=== PATIENT | male | born 1985 | race Caucasian/White ===

== ENCOUNTER 2016-11-06 17:41 | Emergency (ER) | payer OTHER ==
[~2016-11-06] VITALS: Ht 195.6 cm; Wt 122.7 kg
[2016-11-06 17:48] VITALS: Ht 195.6 cm; Wt 122.7 kg
[2016-11-06] MEDS ORDERED: SOD CHLORIDE 0.9% 1,000 ML IV STA ×2 (17:49→20:51)
--- NOTE | 2016-11-06 18:42 | RADRPT ---
PROCEDURE: Chest x-ray CLINICAL INDICATION: Altered mental status TECHNIQUE: Chest single view COMPARISON: None FINDINGS: The heart is normal in size. The pulmonary vessels are normal in caliber. The lungs are clear. Th e costophrenic angles are sharp. The visualized bony thorax is unremarkable. IMPRESSION: No acute cardiopulmonary disease. RPTAT: HH .Henri Villalobos MD, Date Time Electronically viewed and signed by .Henri Villalobos MD, on 11/06/2016 18:41 .W/
[2016-11-06 19:03] LABS: BASOPHILS % 0.3 % (0.0-2.0); EOSINOPHILS % 0.6 % (0.0-7.0); HEMATOCRIT 41.1 % (42.0-52.0); HEMOGLOBIN 13.8 g/dl (14.0-18.0); LYMPHOCYTES # 1.5 10^3/ul (0.8-2.9); LYMPHOCYTES % 21.8 % (15.0-51.0); MEAN CORPUSCULAR HGB CONC 33.6 g/dl (32.0-37.0); MEAN CORPUSCULAR VOLUME 92.1 fl (82.0-101.0); MEAN PLATELET VOLUME 9.7 fl (7.4-10.4); MONOCYTE # 0.4 10^3/ul (0.3-0.9); MONOCYTES % 6.6 % (0.0-11.0); NEUTROPHIL # 4.7 10^3/ul (1.6-7.5); NEUTROPHILS % 70.7 % (39.0-77.0); PLATELET COUNT 185 10^3/UL (140-440); RED BLOOD COUNT 4.47 10^6/ul (4.70-6.10); RED CELL DISTRIBUTION WIDTH 13.2 % (11.5-14.5); UNCORRECTED WBC 6.7 10^3/ul (4.8-10.8); WHITE BLOOD COUNT 6.7 10^3/ul (4.8-10.8)
[2016-11-06 19:06] LABS: CONDITION 1
--- NOTE | 2016-11-06 19:09 | RADRPT ---
PROCEDURE: CT Brain without contrast. CLINICAL INDICATION: Altered mental status TECHNIQUE: Routine CT scan of the brain was performed on a high resolution multi detector scanner without intravenous contrast. One or more of the following dose reduction techniques were used: Auto mated exposure control; Adjustment of the mA and/or kV according to patient size; Use of iterative r econstruction technique. CTDI = 44 mGy. DLP = 720 mGy-cm. COMPARISON: No prior relevant examinations are available for comparison. FINDINGS: Hemorrhage: No evidence of intracranial hemorrhage. Acute ischemic changes: No evidence of acute ischemic changes. Mass effect/Midline shift: None. Parenchymal volume: Within normal limits for age. Ventricular system: Mild prominence of the ventricular caliber throughout appears upper limits of no rmal. Cavum of the septum pellucidum is noted. Chronic changes: Parenchymal attenuation is within normal limits. Extracranial soft tissues: Unremarkable. Calvarium: No fractures. Paranasal sinuses: Visualized paranasal sinuses are clear. Mastoid air cells: Visualized mastoid air cells are clear. IMPRESSION: No acute intracranial abnormalities. Normal appearance the brain parenchyma. MRI of the brain may be useful for further evaluation. RPTAT: [facility]ADD .Young Berumen MD, MD Date Time Electronically viewed and signed by .Young Berumen MD, on 11/06/2016 19:09 .B/
[2016-11-06 19:12] LABS: ALBUMIN 4.4 g/dl (3.3-4.9)
[2016-11-06 19:13] LABS: CHLORIDE 101 mmol/L (97-110); INR 1.01; POTASSIUM 4.2 mmol/L (3.5-5.1); PROTIME 13.3 Sec (12.2-14.2); SODIUM 142 mmol/L (135-144)
[2016-11-06 19:14] LABS: PARTIAL THROMBOPLASTIN TIME 28.1 Sec (25.0-35.0)
[2016-11-06 19:15] LABS: ALANINE AMINOTRANSFERASE 35 IU/L (13-69); ALBUMIN/GLOBULIN RATIO 1.41; ALKALINE PHOSPHATASE 70 IU/L (42-121); ANION GAP 15 (8-16); ASPARTATE AMINO TRANSFERASE 25 IU/L (15-46); BILIRUBIN,INDIRECT 0.2 mg/dl (0-1.1); BILIRUBIN,TOTAL 0.2 mg/dl (0.2-1.3); BLOOD UREA NITROGEN 26 mg/dl (7-20); CARBON DIOXIDE 30 mmol/L (21-31); CREATININE 1.09 mg/dl (0.61-1.24); GLUCOSE 92 mg/dl (70-220); TOTAL PROTEIN 7.5 g/dl (6.1-8.1)
[2016-11-06 19:16] LABS: CALCIUM 9.3 mg/dl (8.4-10.2); CREATINE KINASE 121 IU/L (23-200)
[2016-11-06 19:19] LABS: ACETAMINOPHEN < 10.0 ug/ml (10.0-30.0); ETHANOL < 10.0 mg/dl; SALICYLATE < 1.0 mg/dl (5.0-30.0)
[2016-11-06 19:32] LABS: TROPONIN-I < 0.010 ng/ml (0.00-0.12)
[2016-11-06 20:45] LABS: ADD UMIC NO; URINE BILIRUBIN (Dip) NEGATIVE (NEGATIVE); URINE BLOOD (Dip) NEGATIVE (NEGATIVE); URINE COLOR LT. YELLOW (YELLOW); URINE GLUCOSE (Dip) NEGATIVE (NEGATIVE); URINE KETONES (Dip) NEGATIVE (NEGATIVE); URINE LEUKOCYTE ESTERASE (Dip) NEGATIVE (NEGATIVE); URINE NITRITE (Dip) NEGATIVE (NEGATIVE); URINE TOTAL PROTEIN (Dip) NEGATIVE (NEGATIVE); URINE UROBILINOGEN (Dip) 0.2 E.U./dL (0.1-1.0)
[2016-11-06] MEDS ORDERED: ONDANSETRON 4 MG INJ IV ONE (20:53)
[2016-11-06 21:07] LABS: BARBITURATES Negative (NEGATIVE); BENZODIAZEPINES Negative (NEGATIVE); CANNABINOIDS Negative (NEGATIVE); COCAINE Negative (NEGATIVE); OPIATES Negative (NEGATIVE)
--- NOTE | 2016-11-06 21:52 | ERD ---
ER Documentation Chief Complaint Date/Time DATE: 11/06/16 TIME: 21:42 Chief Complaint ALOC x today HPI This is a 31-year-old male who presents to the emergency department brought in by EMS after the patient had a witnessed brief transient loss of consciousness , with loss of postural tone and complete spontaneous recovery just prior to arrival. The patient had the syncope episode while in the bathroom. He stated he been sitting for significant amount of time and stood to walk to the bathroom when he can completely had a brief transient loss of consciousness witnessed by his . He indicates he is very prone to hypotension as whenever he will have several beers he will feel very lightheaded and dizzy. He however indicates he did not have any alcoholic beverages in the past several days. He denies a headache or changes in vision. He denies any nausea vomiting or abdominal pain. He denies any dizziness prior to the syncope or after the syncope episode. He denies any neck pain. He denies any recent travel or prolonged immobilization has no shortness of breath. His indicated there was no tonic-clonic movements, no urinary incontinence and the patient did not bite his tongue. The patient has no family history of sudden cardiac . ROS All systems reviewed and are negative except as per history of present illness. Medications Home Meds No Active Prescriptions or Reported Meds Allergies Allergies: Coded Allergies: No Known Allergy (Unverified , 11/06/16) PMhx/Soc Medical and Surgical Hx: pt denies Medical Hx, pt denies Surgical Hx History of Surgery: No Anesthesia Reaction: No Hx Neurological Disorder: No Hx Respiratory Disorders: No Hx Cardiac Disorders: No Hx Psychiatric Problems: No Hx Miscellaneous Medical Probl: No Hx Alcohol Use: Yes (occasional) Hx Substance Use: No Hx Tobacco Use: Yes (cigar occasional) Smoking Status: Current some day smoker Physical Exam Vitals Vital Signs Date Time Temp Pulse Resp B/P Pulse Ox O2 Delivery O2 Flow Rate FiO2 11/06/16 19:30 58 18 117/80 Room Air 11/06/16 19:22 61 18 134/71 Room Air 11/06/16 17:48 97.0 65 18 134/97 96 Physical Exam Constitutional:Well-developed. Well-nourished. Lying supine in stretcher HEENT:Normocephalic. Atraumatic.Pupils were equal round reactive to light. Dry mucous membranes.No tonsillar exudates. No nasoseptal hematoma. No hemotympanum. Funduscopy exam showed sharp optic disc bilaterally pupils are equal round reactive to light Neck: No nuchal rigidity. No lymphadenopathy. No posterior cervical spine tenderness or step-offs. Respiratory: Not using accessory muscles of respiration.Lungs were clear to auscultation bilaterally. No rhonchi. No rales. No wheezing. Cardiovascular: Regular rate regular rhythm.No murmurs. No rubs were appreciated.S1, S2 normal. Distal pulses are palpable 2+ bilaterally. GI: Abdomen was soft. Nontender. Non Distended. No pulsatile abdominal masses or bruits. No rebound. No guarding. Bowel sounds were present and normal. Muscle skeletal: Full range of motion of both the upper and lower extremities bilaterally.Normal muscle tone.No assymetrical calf tenderness or swelling. Skin: Pallor with no petechia, no purpura. No lesions on the palms or the soles of the feet. No maculopapular rash. NEURO: Patient was alert, awake, orientated x3.No facial droop. Gait observed and normal with no ataxia.Speech had regular rate and rhythm. No focal neurological deficits. Result Diagram: 11/06/16184911/06/161849 Results 24 hrs Laboratory Tests Test 11/06/16 18:15 11/06/16 18:50 11/06/16 20:19 Bedside Glucose 117mg/dL Acetaminophen Level < 10.0ug/ml Activated Partial Thromboplast Time 28.1Sec Alanine Aminotransferase (ALT/SGPT) 35IU/L Albumin 4.4g/dl Albumin/Globulin Ratio 1.41 Alkaline Phosphatase 70IU/L Anion Gap 15 Aspartate Amino Transf (AST/SGOT) 25IU/L Basophils # 0.010^3/ul Basophils % 0.3% Blood Urea Nitrogen 26mg/dl Calcium Level 9.3mg/dl Carbon Dioxide Level 30mmol/L Chloride Level 101mmol/L Creatine Kinase 121IU/L Creatine Kinase Index 0.4 Creatinine 1.09mg/dl Creatinine Kinase MB (Mass) 0.50ng/ml Direct Bilirubin 0.00mg/dl Eosinophils # 0.010^3/ul Eosinophils % 0.6% Ethyl Alcohol Level < 10.0mg/dl Globulin 3.10g/dl Glucose Level 92mg/dl Hematocrit 41.1% Hemoglobin 13.8g/dl INR International Normalized Ratio 1.01 Indirect Bilirubin 0.2mg/dl Lymphocytes # 1.510^3/ul Lymphocytes % 21.8% Mean Corpuscular Hemoglobin 31.0pg Mean Corpuscular Hemoglobin Concent 33.6g/dl Mean Corpuscular Volume 92.1fl Mean Platelet Volume 9.7fl Monocytes # 0.410^3/ul Monocytes % 6.6% Neutrophils # 4.710^3/ul Neutrophils % 70.7% Nucleated Red Blood Cells # 0.010^3/ul Nucleated Red Blood Cells % 0.0/100WBC Platelet Count 92198^3/UL Potassium Level 4.2mmol/L Prothrombin Time 13.3Sec Prothrombin Time Ratio 1.0 Red Blood Count 4.4710^6/ul Red Cell Distribution Width 13.2% Salicylates Level < 1.0mg/dl Sodium Level 142mmol/L Total Bilirubin 0.2mg/dl Total Protein 7.5g/dl Troponin I < 0.010ng/ml White Blood Count 6.710^3/ul Urine Amphetamines Screen Negative Urine Barbiturates Negative Urine Benzodiazepines Screen Negative Urine Bilirubin NEGATIVE Urine Cannabinoids Negative Urine Clarity CLEAR Urine Cocaine Screen Negative Urine Color LT. YELLOW Urine Glucose NEGATIVE% Urine Hemoglobin NEGATIVE Urine Ketones NEGATIVE Urine Leukocyte Esterase NEGATIVE Urine Nitrite NEGATIVE Urine Opiates Screen Negative Urine Specific [place] 1.015 Urine Total Protein NEGATIVE Urine Urobilinogen 0.2 E.U./dL Urine pH 7.0 Current Medications Medications (Trade) Dose Ordered Sig/Travis Route PRN Reason Start Time Stop Time Status Last Admin Dose Admin Sodium Chloride 1,000 ml @ 1,000 mls/hr Q1H STAT IV 11/06/16 17:49 11/06/16 18:48 DC 11/06/16 19:12 Sodium Chloride (NS) 1,000 ml @ 1,000 mls/hr Q1H STAT IV 11/06/16 20:51 11/06/16 21:50 DC 11/06/16 21:13 Ondansetron HCl (Zofran Inj) 4 mg ONCE ONCE IV 11/06/16 20:53 11/06/16 20:54 DC 11/06/16 21:13 Procedures/MDM The patient presented to the emergency department with a transient loss of consciousness with loss of postural tone, suggestive of a syncope episode. The differential diagnosis of syncope is vast but my workup considered common benign disorders to life-threatening processes. Therefore my differential diagnosis included but was not limited to reflex-mediated syncope such as vasovagal or carotid sinus syncope from coughing, sneezing, micturition, or GI stimulation (eg, defecation). Other etiologies in my workup included orthostatic hypotension which could cause syncope from an abrupt drop in venous return to heart from volume depletion. An EKG and cardiac enzymes were obtained to rule out cardiac arrhythmias or ischemia. Cardiopulmonary disease such as valvular disease, hypertrophic cardiomyopathy, pericardial tamponade, or pulmonary embolism were considered as a factor causing the patients syncope episode. The patient had no difference in blood pressure in both arms that could suggest aortic dissection or subclavian steal syndrome. Rectal exam was negative for fecal occult blood that could suggest GI bleeding. Ancillary laboratory work was obtained to evaluate for metabolic or electrolyte abnormalities. The patient had no witnessed brief tonic movements that could suggest postictal confusion. The patient was placed on a administration manager, continuous pulse oximetry and IV access established by nursing staff. Patient received a liter bolus of 0.9 normal saline. He also received intravenous Zofran. 12 Lead EKG tracing ordered and reviewed by myself showed: Sinus bradycardia of 58 bpm and no arrhythmia. [place] interval normal. QRS duration normal. No ST segment elevation No ST segment depression. No changes consistent with acute ischemia. CT scan of the head showed no acute intracerebral hemorrhage mass-effect or midline shift. Orthostatic vital signs were performed and positive. I did feel the patient's symptoms are likely result of vasovagal syncope. He stated his symptoms have significantly improved and he felt comfortable being discharged home. Observation Note: Time: 4 hours Family Hx: No Hypertension Evaluation: Multiple exams showed improving symptoms and no evidence of his symptoms The patient was discharged home in fair condition. They were instructed to return to the emergency department at any time if there was any worsening of their condition. The patient stated they would follow up with their PCP in the next 24-48 hours to initiate a suitable medication regimen under the care of their PCP as well as to allow their PCP to monitor any drug reactions. The patient was discharged home with prescriptions after they gave informed consent to the new medication. They were also fully informed by myself on the adverse effects and adverse drug interactions in order to provide adequate safeguards to prevent possible adverse reactions to medications. Departure Diagnosis: Primary Impression: Vasovagal syncopes Condition: Fair Patient Instructions: Syncope, Vasovagal JULIUS TUBBS Nov 06, 2016 21:51
[2016-11-06 22:01] VITALS: BP 133/77; PULSE 58; RESP 18; TEMP 98
== END 2016-11-06 22:02 | disposition home or self-care (01) ==
LOC: E/R 17:41
DX: R55 Syncope and collapse (principal); F17.210 Nicotine dependence, cigarettes, uncomplicated
CPT/HCPCS: 36415; 70450; 71010; 80053; 80306; 80307; 81003; 82550; 82553; 82962; 84484; 85025; 85610; 85730; 93005; 96361; 96374; 99285; J2405; J7030